=== PATIENT | male | born 2000 | race Caucasian/White ===

== ENCOUNTER 2022-08-06 08:15 | Emergency (ER) | payer SELFPAY ==
[2022-08-06 09:26] LABS: SARS-CoV-2 NAA Rapid Test DETECTED (NotDetected)
== END 2022-08-06 10:15 | disposition home or self-care (01) ==
LOC: CSHERS 08:15
DX: U07.1 COVID-19 (principal); F17.290 Nicotine dependence, other tobacco product, uncomplicated
CPT/HCPCS: 99284